=== PATIENT | male | born 1950 | race Caucasian/White ===

== ENCOUNTER 2018-09-19 12:32 | Inpatient (IN) | payer BC, MEDICARE ==
[~2018-09-19] VITALS: Ht 177.8 cm; Wt 85.0 kg
--- NOTE | 2018-09-19 12:52 | NUR ---
PT. ARRIVES BY EMS FROM [facility] WITH C/O INTERMITTENT CHEST PAIN THAT STARTED LAST NIGHT. PT. WAS SHOVELING SNOW TODAY AT HIS HOME WHEN THE PAIN WORSENED. PT. WENT TO [facility] AND WAS FOUND TO HAVE AN ELEVATED TROP LEVEL AT 0.2 PER REPORT AND WAS TRANSFERRED HERE FOR FURTHER CARE. IN ROUTE EMS REPORTED ST ELEVATION. A CODE CARDIAC WAS CALLED ENDOCRINOLOGY PHYSICIAN FOR THE PT. DR. GUERRERO AND DR. SAENZ ARE AT THE BEDSIDE. CODE CARDIAC TEAM WITH THE PT. PT.'S CONSENT WAS OBTAINED AFTER RISKS AND BENEFITS WERE EXPLAINED FOR THE CATH PROCEDURE. PT.'S 12 LEAD EKG WAS DONE. A SECOND IV WAS PLACED. PT. HAS THE CP MONITOR ON. PT. WAS UNDRESSED AND IS READY FOR THE CONDUCTOR/ENGINEER. PT. IS ANXIOUS, ALL PROCEDURES ARE BEING EXPLAINED TO THE PT. PT. DID RECEIVE 324 MG ASA ENDOCRINOLOGY PHYSICIAN. SIDERAILS REMAIN UP X 2. RNS X 2 AT THE BEDSIDE. PT.'S HOB IS ELEVATED GREATER THAN 30 DEGREES. PCXR IS COMPLETED AND LABS HAVE BEEN DRAWN.
[2018-09-19 12:54] LABS: MD NO
[2018-09-19] MEDS ORDERED: VERAPAMIL 2.5 MG/ML, 2ML ONE (12:57)
[2018-09-19] MEDS ORDERED: MIDAZOLAM 1 MG/ML, 5ML ONE (12:57)
[2018-09-19] MEDS ORDERED: FENTANYL PF 100 MCG/2ML ONE (12:57)
[2018-09-19] MEDS ORDERED: LIDOCAINE 1%, 20ML ONE (12:57)
--- NOTE | 2018-09-19 12:57 | NUR ---
PT. DENIES PAIN AT THIS TIME. PT. IS PINK, WARM AND DRY. NO C/O SOB OR NAUSEA. RESP EUPNEIC. SATS ARE 98% ON 2 LITERS O2 PER NC.
[2018-09-19] MEDS ORDERED: HEPARIN 1,000 UNITS/ML, 10ML ONE (12:58)
[2018-09-19 12:59] LABS: BASOPHILS # (AUTO) 0.04 x10^3/uL (0-0.1); BASOPHILS % (AUTO) 1 % (0-1); EOSINOPHILS # (AUTO) 0.22 x10^3/uL (0-0.4); EOSINOPHILS % (AUTO) 4 % (1-7); LYMPHOCYTES # (AUTO) 1.83 x10^3/uL (1-3.4); LYMPHOCYTES % (AUTO) 30 % (22-44); MEAN CORPUSCULAR HEMOGLOBIN 31.6 pg (27.5-34.5); MEAN CORPUSCULAR HGB CONC 33.9 g/dL (33.2-36.2); MEAN CORPUSCULAR VOLUME 93.3 fL (81-97); MEAN PLATELET VOLUME 9.4 fL (7.4-10.4); MONOCYTES # (AUTO) 0.39 x10^3/uL (0.2-0.8); MONOCYTES % (AUTO) 6 % (2-9); NEUTROPHILS # (AUTO) 3.63 x10^3/uL (1.8-6.8); NEUTROPHILS % (AUTO) 59 % (42-75); PLATELET COUNT 154 x10^3/uL (130-400); RED CELL DISTRIBUTION WIDTH 14.1 % (9.4-14.8)
[2018-09-19] MEDS ORDERED: SODIUM CHLORIDE FLUSH 10ML SYR IVF ONE (13:00)
[2018-09-19 13:01] LABS: INTERNATIONAL NORMALIZED RATIO 1.02 (0.93-1.1); PROTHROMBIN TIME 10.8 Seconds (9.6-11.5)
[2018-09-19 13:15] LABS: ANION GAP 8 mmol/L (5-15); CALCIUM 8.8 mg/dL (8.5-10.1); CHLORIDE 108 mmol/L (98-107)
[2018-09-19 13:21] LABS: ALANINE AMINOTRANSFERASE 111 U/L (12-78); ALKALINE PHOSPHATASE 58 U/L (45-117); BILIRUBIN,TOTAL 0.4 mg/dL (0.2-1.0); CREATININE 1.37 mg/dL (0.7-1.3); TOTAL PROTEIN 7.5 g/dL (6.4-8.2)
[2018-09-19] MEDS ORDERED: NITROGLYCERIN 0.4 MG BOTTLE (25 TABS) SL PRN (13:30)
[2018-09-19] MEDS ORDERED: ASPIRIN 325 MG TABLET EC PO ONE (13:30)
[2018-09-19] MEDS ORDERED: NITROGLYCERIN 0.4 MG/SPRAY SL PRN (13:30)
[2018-09-19] MEDS ORDERED: BIVALIRUDIN 250 MG ONE ×2 (13:32→13:33)
[2018-09-19] MEDS ORDERED: TICAGRELOR 90 MG TABLET ONE (13:32)
[2018-09-19] MEDS ORDERED: BIVALIRUDIN 250 MG in DEXTROSE 5% 50 ML IV SCH (13:52)
[2018-09-19] MEDS ORDERED: LABETALOL 5MG/ML, 20ML IVPush PRN (15:30)
[2018-09-19] MEDS ORDERED: morphine SULFATE 10 MG/ML, 1ML IVPush PRN (15:30)
[2018-09-19] MEDS ORDERED: POLYETHYLENE GLYCOL 17 GM PACKET PO PRN (15:30)
[2018-09-19 16:16] LABS: FREE T4 (FREE THYROXINE) 1.08 ng/dL (0.76-1.46)
[2018-09-19 16:23] LABS: LDL/HDL RATIO 1.6 (0.5-3.0)
[2018-09-19] MEDS ORDERED: LEVO100T5 PO (16:54)
[2018-09-19] MEDS ORDERED: ATOR-2 PO (16:54)
[2018-09-19] MEDS ORDERED: CALC60SU TP (16:54)
[2018-09-19] MEDS ORDERED: LOSA100T7 PO (16:54)
[2018-09-19] MEDS ORDERED: TAMS0.4C2 PO (16:54)
[2018-09-19] MEDS ORDERED: HYDR-3240 PO (16:57)
[2018-09-19] MEDS: SODIUM CHLORIDE 0.9% 1,000 ML IV SCH ×2 (16:57→23:00)
[2018-09-19] MEDS: HYDROcodone/APAP 5/325 TABLET PO PRN (17:41)
[2018-09-19] MEDS: ATORVASTATIN 20 MG TABLET PO SCH (20:54)
[2018-09-19] MEDS: TAMSULOSIN 0.4 MG CAP.ER.24H PO SCH (20:55)
[2018-09-19] MEDS: TICAGRELOR 90 MG TABLET PO SCH (20:55)
[2018-09-19] MEDS: SODIUM CHLORIDE FLUSH 10ML SYR IVF SCH (20:56)
[2018-09-19] MEDS ORDERED: ATORVASTATIN 80 MG TABLET PO SCH (21:00)
[2018-09-20] MEDS ORDERED: ONDANSETRON 2MG/ML, 2ML IVPush PRN (02:30)
[2018-09-20 04:00] VITALS: BP 134/86
[2018-09-20 04:29] LABS: BASOPHILS # (AUTO) 0.02 x10^3/uL (0-0.1); BASOPHILS % (AUTO) 0 % (0-1); EOSINOPHILS # (AUTO) 0.16 x10^3/uL (0-0.4); EOSINOPHILS % (AUTO) 2 % (1-7); LYMPHOCYTES % (AUTO) 15 % (22-44); MD NO; MEAN CORPUSCULAR HEMOGLOBIN 31.7 pg (27.5-34.5); MEAN CORPUSCULAR VOLUME 93.4 fL (81-97); MEAN PLATELET VOLUME 9.5 fL (7.4-10.4); MONOCYTES # (AUTO) 0.44 x10^3/uL (0.2-0.8); MONOCYTES % (AUTO) 6 % (2-9); NEUTROPHILS # (AUTO) 5.88 x10^3/uL (1.8-6.8); NEUTROPHILS % (AUTO) 77 % (42-75); PLATELET COUNT 145 x10^3/uL (130-400); RED BLOOD COUNT 4.16 x10^6/uL (4.38-5.82); RED CELL DISTRIBUTION WIDTH 13.7 % (9.4-14.8)
[2018-09-20 04:33] LABS: ALBUMIN 3.3 g/dL (3.4-5.0); ANION GAP 8 mmol/L (5-15); CALCIUM 8.4 mg/dL (8.5-10.1); CHLORIDE 110 mmol/L (98-107); CREATININE 1.19 mg/dL (0.7-1.3)
[2018-09-20 04:36] LABS: ALANINE AMINOTRANSFERASE 97 U/L (12-78); ALKALINE PHOSPHATASE 53 U/L (45-117); BILIRUBIN,TOTAL 0.9 mg/dL (0.2-1.0); TOTAL PROTEIN 6.6 g/dL (6.4-8.2)
[2018-09-20 05:25] LABS: HEMOGLOBIN A1C 5.9 % (4.2-6.3)
[2018-09-20] MEDS ORDERED: ASPIRIN 325 MG TABLET EC PO SCH (06:00)
[2018-09-20] MEDS: PANTOPROZOLE 40MG TABLET PO SCH (06:47)
[2018-09-20] MEDS: LEVOTHYROXINE 100 MCG TABLET PO SCH (06:47)
[2018-09-20] MEDS: ASPIRIN 81 MG TABLET EC PO SCH (08:23)
[2018-09-20] MEDS: LOSARTAN 50MG TABLET PO SCH (08:23)
[2018-09-20] MEDS: SODIUM CHLORIDE FLUSH 10ML SYR IVF SCH ×2 (08:23→20:36)
[2018-09-20] MEDS: TICAGRELOR 90 MG TABLET PO SCH ×2 (08:23→20:36)
[2018-09-20] MEDS: SENNA/DOCUSATE TABLET PO SCH ×2 (08:23→08:38)
[2018-09-20] MEDS: CARVEDILOL 3.125 MG TABLET PO SCH ×2 (09:31→16:59)
[2018-09-20 14:20] VITALS: BP 141/84
[2018-09-20 16:58] VITALS: BP 129/86
[2018-09-20 18:34] VITALS: BP 117/78
[2018-09-20] MEDS: ATORVASTATIN 20 MG TABLET PO SCH (20:36)
[2018-09-20] MEDS: TAMSULOSIN 0.4 MG CAP.ER.24H PO SCH (20:36)
[2018-09-21 01:57] VITALS: BP 131/86
[2018-09-21 05:26] VITALS: BP 125/83
[2018-09-21] MEDS: HYDROcodone/APAP 5/325 TABLET PO PRN (05:29)
[2018-09-21] MEDS: CARVEDILOL 3.125 MG TABLET PO SCH ×2 (05:29→17:56)
[2018-09-21] MEDS: LEVOTHYROXINE 100 MCG TABLET PO SCH (05:29)
[2018-09-21 06:20] LABS: BASOPHILS # (AUTO) 0.04 x10^3/uL (0-0.1); BASOPHILS % (AUTO) 1 % (0-1); EOSINOPHILS # (AUTO) 0.22 x10^3/uL (0-0.4); EOSINOPHILS % (AUTO) 3 % (1-7); LYMPHOCYTES # (AUTO) 1.32 x10^3/uL (1-3.4); LYMPHOCYTES % (AUTO) 19 % (22-44); MD NO; MEAN CORPUSCULAR HEMOGLOBIN 32.7 pg (27.5-34.5); MEAN CORPUSCULAR VOLUME 93.4 fL (81-97); MEAN PLATELET VOLUME 9.9 fL (7.4-10.4); MONOCYTES # (AUTO) 0.52 x10^3/uL (0.2-0.8); MONOCYTES % (AUTO) 8 % (2-9); NEUTROPHILS # (AUTO) 4.81 x10^3/uL (1.8-6.8); NEUTROPHILS % (AUTO) 70 % (42-75); PLATELET COUNT 149 x10^3/uL (130-400); RED BLOOD COUNT 4.15 x10^6/uL (4.38-5.82); RED CELL DISTRIBUTION WIDTH 13.8 % (9.4-14.8)
[2018-09-21 06:29] LABS: CHLORIDE 108 mmol/L (98-107)
[2018-09-21 07:01] LABS: ALANINE AMINOTRANSFERASE 87 U/L (12-78); ALBUMIN 3.3 g/dL (3.4-5.0); ALKALINE PHOSPHATASE 53 U/L (45-117); ANION GAP 8 mmol/L (5-15); BILIRUBIN,TOTAL 0.7 mg/dL (0.2-1.0); CALCIUM 8.8 mg/dL (8.5-10.1); CREATININE 1.24 mg/dL (0.7-1.3); TOTAL PROTEIN 6.7 g/dL (6.4-8.2)
[2018-09-21 07:08] VITALS: BP 149/87
[2018-09-21] MEDS: SENNA/DOCUSATE TABLET PO SCH (09:00)
[2018-09-21] MEDS: LOSARTAN 50MG TABLET PO SCH (09:29)
[2018-09-21] MEDS: TICAGRELOR 90 MG TABLET PO SCH ×2 (09:29→20:14)
[2018-09-21] MEDS: ASPIRIN 81 MG TABLET EC PO SCH (09:29)
[2018-09-21] MEDS: PANTOPROZOLE 40MG TABLET PO SCH (09:29)
[2018-09-21] MEDS: SODIUM CHLORIDE FLUSH 10ML SYR IVF SCH ×2 (09:30→20:14)
[2018-09-21 12:48] VITALS: BP 149/96
[2018-09-21 19:20] VITALS: BP 131/87
[2018-09-21] MEDS: ATORVASTATIN 20 MG TABLET PO SCH (20:13)
[2018-09-21] MEDS: TAMSULOSIN 0.4 MG CAP.ER.24H PO SCH (20:14)
[2018-09-21] MEDS ORDERED: TEMAZEPAM 15 MG CAPSULE PO PRN (21:00)
[2018-09-22 00:47] VITALS: BP 107/75
[2018-09-22 05:07] LABS: BASOPHILS # (AUTO) 0.03 x10^3/uL (0-0.1); BASOPHILS % (AUTO) 0 % (0-1); EOSINOPHILS # (AUTO) 0.26 x10^3/uL (0-0.4); EOSINOPHILS % (AUTO) 4 % (1-7); LYMPHOCYTES # (AUTO) 1.61 x10^3/uL (1-3.4); LYMPHOCYTES % (AUTO) 22 % (22-44); MD NO; MEAN CORPUSCULAR HEMOGLOBIN 32.2 pg (27.5-34.5); MEAN CORPUSCULAR HGB CONC 34.1 g/dL (33.2-36.2); MEAN CORPUSCULAR VOLUME 94.4 fL (81-97); MEAN PLATELET VOLUME 9.6 fL (7.4-10.4); MONOCYTES # (AUTO) 0.59 x10^3/uL (0.2-0.8); MONOCYTES % (AUTO) 8 % (2-9); NEUTROPHILS # (AUTO) 4.72 x10^3/uL (1.8-6.8); NEUTROPHILS % (AUTO) 66 % (42-75); PLATELET COUNT 153 x10^3/uL (130-400); RED BLOOD COUNT 4.05 x10^6/uL (4.38-5.82); RED CELL DISTRIBUTION WIDTH 13.5 % (9.4-14.8)
[2018-09-22 05:12] LABS: ALBUMIN 3.4 g/dL (3.4-5.0); ANION GAP 7 mmol/L (5-15); CALCIUM 8.9 mg/dL (8.5-10.1); CHLORIDE 106 mmol/L (98-107)
[2018-09-22 05:17] LABS: ALANINE AMINOTRANSFERASE 82 U/L (12-78); ALKALINE PHOSPHATASE 53 U/L (45-117); BILIRUBIN,TOTAL 0.7 mg/dL (0.2-1.0); CREATININE 1.62 mg/dL (0.7-1.3)
[2018-09-22 05:59] VITALS: BP 112/77
[2018-09-22] MEDS: CARVEDILOL 3.125 MG TABLET PO SCH (06:00)
[2018-09-22] MEDS: LEVOTHYROXINE 100 MCG TABLET PO SCH (06:00)
[2018-09-22 07:16] VITALS: BP 113/76
[2018-09-22] MEDS ORDERED: HYDROCORTISONE OINT 0.5%, 30GM TP PRN (08:30)
[2018-09-22] MEDS ORDERED: SODIUM CHLORIDE 0.9%, 500ML IVBOLUS ONE (09:00)
[2018-09-22] MEDS: SENNA/DOCUSATE TABLET PO SCH (09:43)
[2018-09-22] MEDS: LOSARTAN 50MG TABLET PO SCH (09:43)
[2018-09-22] MEDS: ASPIRIN 81 MG TABLET EC PO SCH (09:44)
[2018-09-22] MEDS: TICAGRELOR 90 MG TABLET PO SCH (09:44)
[2018-09-22] MEDS: PANTOPROZOLE 40MG TABLET PO SCH (09:44)
[2018-09-22] MEDS: SODIUM CHLORIDE FLUSH 10ML SYR IVF SCH (09:45)
[2018-09-22] MEDS ORDERED: PANT40TA5 PO (10:29)
[2018-09-22] MEDS ORDERED: CARV3.1212 PO (10:29)
[2018-09-22] MEDS ORDERED: ASPI81TA45 PO (10:29)
[2018-09-22] MEDS ORDERED: TICA90TA PO (10:29)
== END 2018-09-22 13:55 | disposition home or self-care (01) | DRG 247 ==
LOC: EDSEX 12:32 → EDBD 12:32 → ED 13:08 → EDIP 13:09 → MERGE 13:09 → ED 13:23 → ICU 14:10 → 5SO 09-20 12:50
PROVIDERS: ADMIT Internal Medicine; ATTEND Internal Medicine
PROC: 027034Z Dilation of Coronary Artery, One Artery with Drug-eluting Intraluminal Device, Percutaneous Approach (ICD-10-PCS; principal; 2018-09-19)
PROC: 4A023N7 Measurement of Cardiac Sampling and Pressure, Left Heart, Percutaneous Approach (ICD-10-PCS; 2018-09-19)
PROC: B2151ZZ Fluoroscopy of Left Heart using Low Osmolar Contrast (ICD-10-PCS; 2018-09-19)
PROC: B2111ZZ Fluoroscopy of Multiple Coronary Arteries using Low Osmolar Contrast (ICD-10-PCS; 2018-09-19)
DX: I21.4 Non-ST elevation (NSTEMI) myocardial infarction (principal); I25.110 Atherosclerotic heart disease of native coronary artery with unstable angina pectoris; E03.9 Hypothyroidism, unspecified; E78.5 Hyperlipidemia, unspecified; G89.29 Other chronic pain; I10 Essential (primary) hypertension; I44.7 Left bundle-branch block, unspecified; N19 Unspecified kidney failure; N40.0 Benign prostatic hyperplasia without lower urinary tract symptoms; Z80.1 Family history of malignant neoplasm of trachea, bronchus and lung; Z82.49 Family history of ischemic heart disease and other diseases of the circulatory system; Z87.891 Personal history of nicotine dependence; Z88.8 Allergy status to other drugs, medicaments and biological substances; Z95.3 Presence of xenogenic heart valve
CPT/HCPCS: 36415; 93454; 99285; C9600; 71045; 80053; 80061; 83036; 83735; 83880; 84100; 84439; 84484; 85025; 85610; 87081; 93005; 93306; 93926; 99156; 99157; C1760; C1876; C1894; G0378; J0583; J1644; J2250; J2405; J3010; J3490; C1725; C1769; C1887; J7030; J7040; Q9967